=== PATIENT | male | born 1985 | race Caucasian/White ===

== ENCOUNTER 2023-06-06 14:07 | Emergency (ER) | payer OTHER ==
[2023-06-06] MEDS ORDERED: Diphtheria,Pertussis(Acell),Tetanus Vaccine 0.5 ML Syringe IM ONE (14:28)
[2023-06-06] MEDS ORDERED: Bacitracin Oint 1 GM U/D Packet TOP ONE (14:28)
[2023-06-06] MEDS ORDERED: Lidocaine 1% 5 ML VIAL INJECT ONE (14:28)
[2023-06-06] MEDS ORDERED: ceFAZolin 1 GM in Sodium Chloride 0.9% 50 ML IV ONE (14:38)
[2023-06-06] MEDS ORDERED: Naloxone 0.4 MG/ML SDV IVPUSH PRN (14:38)
[2023-06-06] MEDS ORDERED: HYDROmorphone 0.5 MG/0.5 ML Syringe IVPUSH ONE (14:38)
[2023-06-06] MEDS ORDERED: Sodium Chloride 0.9% 10 ML Syringe FLUSH PRN (14:39)
[2023-06-06] MEDS ORDERED: Sodium Chloride 0.9% 1,000 ML IV SCH (14:45)
== END 2023-06-06 16:14 | disposition home or self-care (01) ==
LOC: JP.ED 14:07
DX: S91.312A Laceration without foreign body, left foot, initial encounter (principal); S96.922A Laceration of unspecified muscle and tendon at ankle and foot level, left foot, initial encounter; W26.9XXA Contact with unspecified sharp object(s), initial encounter
CPT/HCPCS: 12001; 73630; 90471; 90715; 96361; 96365; 96375; 99283; J0690; J1170; J3490; J7030